=== PATIENT | male | born 1955 | race Caucasian/White ===

== ENCOUNTER 2023-09-02 11:14 | Inpatient (IN) | payer OTHER, SELFPAY ==
[2023-09-02] VITALS (18 sets, daily range): BP systolic 118–155; BP diastolic 65–113; PULSE 10–129; RESP 18–37; TEMP 36.4–37.2; O2SAT 88–96; BMI 24.7
--- NOTE | ~2023-09-02 | XR_ITS ---
EXAMINATION: XR abdomen gastric tube insert DATE: 09/05/2023 09:02 INDICATION: Orogastric tube insertion. TECHNIQUE: A semierect view of the abdomen was obtained. COMPARISON: None. FINDINGS: The lower abdomen is not included. The orogastric tube tip is in the stomach. There are air space opacities in the visualized portions of the lungs, consistent with pneumonia. IMPRESSION: 1. Orogastric tube tip in the stomach. Reviewed, dictated and finalized at location E. WRITER
--- NOTE | ~2023-09-02 | XR_ITS ---
XR chest 1V portable DATE: 09/02/2023 12:33 INDICATION: Cough. Hypoxia. TECHNIQUE: Portable AP chest on 08/29/2023 at 1232 hours COMPARISON: None FINDINGS: Heart size is normal. Aortic arch calcification. No hilar or mediastinal enlargement is romario dent. Scattered patchy infiltrates are noted bilaterally, primarily in the mid and lower lung zones. There is mild prominence of minor fissure which may indicate subpleural edema. No pleural effusion or pneum othorax is noted. IMPRESSION: Patchy mild bilateral mid and lower lung infiltrates Reviewed, dictated and finalized at location A. NT COUNSEL
--- NOTE | ~2023-09-02 | CT_ITS ---
EXAMINATION: CTA chest PE protocol DATE: 09/02/2023 13:40 INDICATION: Shortness of breath, hypoxia. Elevated d-dimer. TECHNIQUE: Computed tomography angiography (CTA) of the chest was performed with 100 mL Omnipaque-350 intravenous contrast timed to evaluate the pulmonary arteries. Coronal maximum intensity projection 3D-reconstructions were created by the technologist. Automated exposure control and iterative reconst ruction technique were employed. Exam dose: 457.13 mGy-cm total exam DLP. COMPARISON: 08/29/2023 portable AP chest FINDINGS: There is diagnostic contrast enhancement of the pulmonary arteries and no evidence of pulmo nary embolism. There is atherosclerotic calcification of the thoracic aorta but no thoracic aortic aneurysm or disse ction. Normal heart size. Coronary artery calcification is noted. No pericardial or pleural effusion. There are extensive bilateral upper lobe, middle lobe and to a greater extent lower lobe preferential ly peripheral groundglass infiltrates with extensive air bronchograms particularly in the lower lobes . Extensive bilateral pneumonia is suspected. Consider Covid. Normal morphology of the adrenal glands. Diffuse hepatic steatosis. Small sliding hiatal hernia. No suspicious osteolytic or osteoblastic lesions. IMPRESSION: Extensive bilateral upper and particularly lower lobe preferentially peripheral pulmonar y groundglass infiltrates; consider Covid pneumonia No evidence of pulmonary embolism Reviewed, dictated and finalized at Location A. Reviewed, dictated and finalized at location A. LRY SETTER IMPRESSION: Extensive bilateral upper and particularly lower lobe preferential ly peripheral pulmonary groundglass infiltrates; consider Covid pneumonia No evidence of pulmonary embolism
--- NOTE | ~2023-09-02 | XR_ITS ---
XR chest ET placement 09/05/2023 09:02 Indication: Respiratory distress Procedure: AP portable chest Comparison: Comparison to multiple prior studies sequentially, with oldest reviewed study dated 08/11. Findings: Endotracheal tube tip 7.3 cm above the mir. NG tube in the stomach. Heart size normal. S table diffuse bilateral airspace disease. No significant effusion. No pneumothorax. Impression: 1: Stable diffuse bilateral airspace disease which may represent edema or pneumonia. Reviewed, dictated and finalized at location B. TRIC MOTOR ASSEMBLER AND TESTER Impression: 1: Stable diffuse bilateral airspace disease which may represent edema or pneum onia.
--- NOTE | ~2023-09-02 | XR_ITS ---
XR chest 1V portable 09/03/2023 17:59 Indication: Redness of breath Procedure: AP portable chest Comparison: 09/02/2023 Findings: Heart size normal. Developing diffuse bilateral airspace disease. No significant effusion. No pneumothorax. No acute osseous abnormality. Impression: 1: Developing bilateral airspace disease which may represent pneumonia or edema. Reviewed, dictated and finalized at location A. GRAPHY TECHNOLOGIST Impression: 1: Developing bilateral airspace disease which may represent pneumonia or edema .
--- NOTE | ~2023-09-02 | XR_ITS ---
XR chest PICC line 09/05/2023 13:06 Indication: PICC line placement Procedure: AP portable chest. Study limited due to exclusion of the lung bases. Comparison: Comparison to multiple prior studies sequentially, with oldest reviewed study dated 08/11. Findings: Endotracheal tube tip 6 cm above the mir. Right subclavian PICC line tip in the SVC. Dif fuse bilateral airspace disease may represent edema or pneumonia, unchanged allowing for technique. C ardiomediastinal silhouette allowing for technique. Impression: 1: PICC line tip in the SVC. Reviewed, dictated and finalized at location B. TESTER Impression: 1: PICC line tip in the SVC.
--- NOTE | ~2023-09-02 | XR_ITS ---
EXAMINATION: XR chest 1V portable DATE: 09/04/2023 08:18 INDICATION: COVID-19 pneumonia. TECHNIQUE: A single frontal view of the chest was obtained. COMPARISON: Chest single view 09/03/2023, chest CT 09/02/2023 FINDINGS: There are diffuse airspace opacities in the lungs with a peripheral predominance and sparin g of the lung apices. No pleural effusion or pneumothorax. The heart size is normal. IMPRESSION: 1. Stable diffuse lung disease, consistent with COVID-19 pneumonia. Reviewed, dictated and finalized at location E. ICAL MATERIAL HANDLER
--- NOTE | ~2023-09-02 | CT_ITS ---
EXAMINATION: CT brain wo con DATE: 09/05/2023 09:31 INDICATION: Encephalopathy TECHNIQUE: Computed tomography (CT) of the head was performed without intravenous contrast. Sagittal and coronal reconstructions were performed. The mA was adjusted according to patient size. Iterative reconstruction technique was employed. The dose-length product was 681.00 mGy-cm. COMPARISON: None FINDINGS: Endotracheal tube and nasogastric tube in the oropharynx. There are moderate-sized regions of loss of thomas-white matter differentiation without significant volume loss or swelling in the left frontal lo be and left occipital and parieto-occipital regions which are suspicious for acute infarct. There is also a smaller focus of mild decreased attenuation at the left caudate nucleus and along a sulcus in the posterior right frontal lobe consistent with age-indeterminate but potentially acute infarcts. Lo wer attenuation likely chronic lacunar infarct at the right thalamus. There is mild scattered white m atter hypoattenuation consistent with chronic small vessel ischemic disease. No acute intracranial he morrhage or abnormal extra axial fluid collection. Ventricles are normal and symmetric. No mass/mass effect. Mucous retention cyst in the left maxillary sinus and mild mucosal thickening the bilateral e thmoid sinuses. The orbits and mastoid air cells are normal. IMPRESSION: 1. Regions of suspected acute infarct in the left frontal lobe, left occipital and parieto-occipital region and smaller age-indeterminate potentially acute infarcts in the left caudate nucleus and poste rior right frontal lobe. Findings were discussed with Sheila Mendez, the nurse caring for the patient, at 9:41 AM. MRI might be helpful to better assess the chronicity of the lesions. If the left and rig ht-sided lesions should be contemporaneous, this would favor a central cardiogenic origin. 2. Additional lower-attenuation likely chronic lacunar infarct at the right thalamus and mild scatter ed white matter hypoattenuation consistent with chronic small vessel ischemic disease. Reviewed, dictated and finalized at location A. ICATION SERVICER IMPRESSION: 1. Regions of suspected acute infarct in the left frontal lobe, left occipital and parieto-occipital region and smaller age-indeterminate potentially acute in farcts in the left caudate nucleus and posterior right frontal lobe. Findings w ere discussed with Sheila Mendez, the nurse caring for the patient, at 9:41 AM. MRI might be helpful to better assess the chronicity of the lesions. If the lef t and right-sided lesions should be contemporaneous, this would favor a central cardiogenic origin. 2. Additional lower-attenuation likely chronic lacunar infarct at the right hang lamus and mild scattered white matter hypoattenuation consistent with chronic s mall vessel ischemic disease.
--- NOTE | ~2023-09-02 | CT_ITS ---
EXAMINATION: CT diagnostic chest wo con DATE: 09/05/2023 11:49 INDICATION: Covid pneumonia TECHNIQUE: Computed tomography (CT) of the chest was performed without intravenous contrast. The dose -length product was 439.49 mGy-cm. Automated exposure control and iterative reconstruction technique were employed. COMPARISON: CT dated 09/02/2023 FINDINGS: Mediastinal lymphadenopathy, likely reactive. Small pleural effusions. Endotracheal tube is present. Significant progression of diffuse bilateral confluent airspace consolidation, consistent w ith pneumonia. No pneumothorax. NG tube in the stomach. No endobronchial lesions. No acute osseous ab normality. IMPRESSION: 1. Significant progression of diffuse bilateral airspace consolidation, consistent with pneumonia. 2: Small pleural effusions. 3: Mediastinal lymphadenopathy, likely reactive. Reviewed, dictated and finalized at location B. ESSIONAL SHOPPER IMPRESSION: 1. Significant progression of diffuse bilateral airspace consolidation, consist ent with pneumonia. 2: Small pleural effusions. 3: Mediastinal lymphadenopathy, likely reactive.
--- NOTE | ~2023-09-02 | XR_ITS ---
XR chest 1V portable 09/05/2023 08:18 Indication: Pneumonia. Procedure: AP portable chest Comparison: 09/04 and 09/03/2023 Findings: Significant progression of diffuse bilateral airspace disease. No significant effusion or p neumothorax. Impression: 1: Significant interval progression of diffuse bilateral airspace disease which may represent edema a nd/or pneumonia. Reviewed, dictated and finalized at location B. ERSMITH APPRENTICE Impression: 1: Significant interval progression of diffuse bilateral airspace disease which may represent edema and/or pneumonia.
--- NOTE | ~2023-09-02 | CT_ITS ---
EXAMINATION: CTA brain carotid DATE: 09/05/2023 11:49 INDICATION: History TECHNIQUE: Computed tomographic angiography (CTA) of the head was performed with 100 mL Omnipaque-350 intravenous contrast. CTA of the neck was performed with intravenous contrast. Automated exposure co ntrol and iterative reconstruction technique were employed. The dose-length product was 1131.77 mGy-c m. Maximum intensity projection and volume rendered 3D-reconstructions were created by the technologi st on a separate workstation. COMPARISON: Head CT 09/05/2023 FINDINGS: HEAD CTA: There are infarcts in left frontal lobe, left parietal lobe, left occipital lobe, right fro ntoparietal region, and left caudate nucleus. There is a lacunar infarct in right thalamus. There is no intracranial hemorrhage or abnormal mass lesion. The ventricles are normal in size. The orbits are normal. There is mucosal thickening in the paranasal sinuses. The mastoid air cells are normal. Righ t vertebral artery is dominant. There is no significant stenosis of basilar artery or the posterior c erebral arteries. There is no significant stenosis of intracranial internal carotid arteries or anter ior or middle cerebral arteries. Anterior communicating artery is normal. The posterior communicating arteries are normal. There is no aneurysm. NECK CTA: There are small pleural effusions. There are peripheral airspace and groundglass opacities in the visualized portions of the lungs. There is an endotracheal tube in expected position. An oroga stric tube is noted. There is no significant stenosis of the vertebral arteries. There is plaque in t he proximal internal carotid arteries. There is 0% stenosis of the proximal right internal carotid ar solomon relative to normal distal artery lumen diameter (NASCET criteria). There is 0% stenosis of the p roximal left internal carotid artery relative to normal distal artery lumen diameter. There is severe cervical spondylosis. IMPRESSION: 1. Infarcts involving the left frontal lobe, left parietal lobe, left occipital lobe, right frontopar ietal region, and left caudate nucleus, likely acute. 2. Age-indeterminate infarct in the right thalamus. 3. No aneurysm or significant intracranial arterial stenosis. 4. 0% stenosis of the proximal internal carotid arteries relative to normal distal artery lumen diame ters (NASCET criteria). 5. Small pleural effusions. 6. Diffuse lung disease, consistent with pneumonia. Reviewed, dictated and finalized at location E. IMPRESSION: 1. Infarcts involving the left frontal lobe, left parietal lobe, left occipital lobe, right frontoparietal region, and left caudate nucleus, likely acute. 2. Age-indeterminate infarct in the right thalamus. 3. No aneurysm or significant intracranial arterial stenosis. 4. 0% stenosis of the proximal internal carotid arteries relative to normal dis angelica artery lumen diameters (NASCET criteria). 5. Small pleural effusions. 6. Diffuse lung disease, consistent with pneumonia.
--- NOTE | 2023-09-02 11:45 | ECG_ITS ---
Measurements Intervals [place] Rate: 127 P: 38 AK: 127 QRS: -42 QRSD: 98 T: 14 QT: 307 QTc: 447 Interpretive Statements SINUS TACHYCARDIA INFERIOR MYOCARDIAL INFARCTION , PROBABLY OLD WITH POSTERIOR EXTENSION [40+ ms Q WAVE AND/OR ST/T ABNORMALITY IN II/aVFPROMINE NO PREVIOUS ECG AVAILABLE FOR COMPARISON Electronically Signed On 09-02-2023 17:14:01 ECDIS N NAVIGATION OPERATOR by Sheila Jones M.D.
--- NOTE | 2023-09-02 11:57 | ED.GENADULT ---
HPI - General Adult General Chief complaint: Upper Respiratory Infection Stated complaint: cough, Low o2 Time Seen by Provider: 09/02/23 11:29 Source: patient, EMS and RN notes reviewed Mode of arrival: EMS History of Present Illness HPI narrative: This is a 67 year old male who presents for evaluation of shortness of breath. He states that he developed cough, congestion runny nose 1 week ago. HE has had progressive shortness of breath since onset of symptoms. He also reports decreased appetite and he has not been eating and drinking. He reports weakness. EMS reports patient was hypoxic and wheezing. He was 86% on room air. He was given duoneb tx with improvement of symptoms. He was still 88% on room air in ER. He denies chest pain, vomiting , diarrhea. Related Data Allergies Allergy/AdvReac Type Severity Reaction Status Date / Time No Known Allergies Allergy Verified 09/02/23 13:17 Review of Systems Constitutional: Constitutional: Reports fatigue and Reports weakness Cardiovascular: Cardiovascular: Denies syncope, Denies rapid heart rate, Denies irregular heart rhythm, Denies leg edema and Reports dyspnea Respiratory: Respiratory: Reports chest congestion, Reports cough, Denies hemoptysis, Denies excessive phlegm production, Reports dyspnea and Reports wheezing Gastrointestinal: Gastrointestinal: Denies abdominal pain, Denies hematochezia, Denies diarrhea and Denies vomiting Genitourinary: Genitourinary: Denies hematuria, Denies dysuria, Denies penile discharge and Denies testicular pain Musculoskeletal: Musculoskeletal: Denies joint swelling, Denies loss of height and Denies muscle weakness Neurologic: Denies syncope, Denies focal weakness and Denies weakness COUNT INCLUDES THE [facility] Past Medical History Medical History (Updated 09/02/23 @ 18:59 by Yanira Alfaro MD) Type 2 diabetes mellitus Surgical History Surgical History (Updated 09/02/23 @ 18:09 by Iona Freeman PA-C) History of appendectomy Family History Family History (Updated 09/02/23 @ 18:26 by Armin Forrest, MEERA) Mother Cancer Father Dementia Other Family history non-contributory Social History Social History (Updated 09/02/23 @ 18:10 by Iona Freeman PA-C) Social History: Surrogate medical decision maker: Danny Mendez, son. Code status: Full code. Smoking packs per day: 1 Smoking cigarettes per day: 20.0 Years smoked: 26 Smoking pack-years: 26.00 Smoking status: Former smoker Tobacco type: cigarettes Smoking end date: 08/10/03 Additional smoking assessment comments: Former smoker, quit greater than 25 years ago. Alcohol intake: never Substance use: never Do You Feel Safe in your Home?: Yes Lack of Transportation: YES Lack of Food: Never True Current Housing: I Have Housing Concerned About Future Housing: No Difficulty Paying Gas/Electric Bills: No Difficulty Paying for Meds: No Currently Unemployed: No Education: High School Diploma/GED Difficulty w/ Childcare or Family Care: No Additional living arrangements comments: Lives in [place], [place]. 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 Spiritual care concerns: No Exam Const: General: alert and ill appearing Nutritional Appearance: well nourished Orientation/consciousness: patient oriented x3 HENMT: Head: normal to inspection Face and sinus: normal facial exam Mouth: Yes Normal oral and palatal mucosa present and Yes moist mucous membranes Eyes: EOM: EOMs intact bilaterally Neck: Neck: normal visual inspection Chest: Chest palpation & inspection: normal inspection of the chest Resp: Effort & Inspection: normal respiratory effort Auscultation: clear to auscultation bilaterally Cardio: Rate: tachycardic Rhythm: regular rhythm Heart sounds: no murmurs GI: GI Palp: Yes Soft to palpation, No Tenderness to palpation present (GI), No Guarding due to palpation present (GI) and No Rigid d
[2023-09-02 12:06] LABS: Alveolar/Arterial O2 Gradient 92.9 mmHg; Base Excess ABG -11.2 mEq/l (+/-2.0); Carboxyhemoglobin 0.7 % THb (0-2.0); Device NASAL CANNULA; Fractional Inspired Oxygen 28 %; HCO3 ABG 11.9 mEq/l (22.0-26.0); Methemoglobin ABG 0.2 %THb (0-1.5); Modified Allen's Test Pass; Oxygen Content ABG 19.6 %vol (16.0-22.0); Oxygen Saturation ABG 95.9 % (95.0-100.0); Oxyhemoglobin 94.6 % THb (90.0-100.0); PCO2 ABG 21.6 mmHg (35.0-45.0); PO2 ABG 81.3 mmHg (80.0-100.0); Reduced Hemoglobin 4.5 %THb (0-5.0); Site Drawn LEFT RADIAL; Total Hemoglobin 14.7 g/dL (12.0-18.0); pH ABG 7.358 (7.350-7.450)
[2023-09-02 12:15] LABS: Basophils Percent Auto 0.2 % (0.2-1.2); Hematocrit 44.2 % (42.0-52.0); Hemoglobin 14.2 g/dL (14.0-18.0); Immature Granulocyte Absolute 0.06 K/mm3 (0.00-0.031); Immature Granulocyte Percent A 0.7 % (0-0.5); Lymphocytes Absolute Auto 0.52 K/mm3 (0.9-3.2); Lymphocytes Percent Auto 5.7 % (18.3-44.2); Mean Corpuscular HGB Conc 32.1 g/dl (32-36); Mean Corpuscular Hemoglobin 27.3 pg (26-34); Mean Platelet Volume 9.3 fl (7.4-10.4); Monocytes Absolute Auto 0.4 K/mm3 (0.1-0.6); Monocytes Percent Auto 3.9 % (2.6-8.5); Neutrophils Absolute Auto 8.1 K/mm3 (1.3-6.7); Neutrophils Percent Auto 89.5 % (45.5-73.1); Platelet Count Result 271 k/mm3 (150-375); Red Cell Distribution Width 13.2 % (11.5-14.5); White Blood Count 9.1 K/mm3 (4.5-10.0)
[2023-09-02 12:24] LABS: Lactic Acid Reflex 2.7 mmol/L (0.7-2.0)
[2023-09-02 12:27] LABS: Alanine Aminotransferase 23 U/L (6-50); Albumin Level 4.1 g/dL (3.5-5.1); Alkaline Phosphatase 62 U/L (38-126); Anion Gap 24 mmol/L (8-16); Aspartate Amino Transferase 35 U/L (17-59); Bilirubin,Total 0.7 mg/dL (0.2-1.3); Blood Urea Nitrogen 13 mg/dL (9-20); Calcium 8.7 mg/dL (8.4-10.2); Carbon Dioxide 11 mmol/L (22-30); Chloride 96 mmol/L (98-107); Estimated CRCL calculation 68 ml/min; Estimated Glomerular Filt Rate > 60; Glucose 303 mg/dL (65-110); Potassium 3.7 mmol/L (3.4-5.0); Sodium 131 mmol/L (137-145)
[2023-09-02 12:31] LABS: INR 1.1; Prothrombin Time 15.1 Seconds (11.1-14.7)
[2023-09-02 12:32] LABS: Partial Thromboplastin Time 31.9 SECONDS (22.3-36.8)
[2023-09-02] MEDS: LACTATED RINGERS 1,000 ML 999 ML IV CONT ×2 (12:32→15:20)
[2023-09-02 12:35] LABS: NT Pro B Type Natriuretic Pept 805 pg/mL (19.9-100)
[2023-09-02 12:37] LABS: Troponin I < 0.012 ng/mL (0.000-0.034)
[2023-09-02 12:46] LABS: D Dimer 2.13 ug/mL (<0.48)
[2023-09-02 12:54] LABS: Influenza A QL RT-PCR Negative (Negative); Influenza B QL RT-PCR Negative (Negative); RSV RNA, RT-PCR Negative (Negative); SARS-CoV-2 RNA PCR Positive (Negative)
[2023-09-02 13:54] LABS: Appearance Urine Clear (Clear); Bacteria Urine None Seen /hpf; Bilirubin Urine Negative (Negative); Blood Urine 1+ (Negative); Color Urine Yellow (Yellow); Glucose Urine UA 3+ mg/dL (Negative); Ketones Urine 4+ mg/dL (Negative); Leukocyte Esterase Ur Negative LEU/UL (Negative); Nitrate Urine Negative (Negative); Non Pathogenic Casts 0-2; Protein Urine 2+ mg/dL (Negative); RBC Urine 0-2 /hpf (0-2); Specific Grav Ur 1.032 (1.001-1.035); Squamous Epithelial Cell Urine None seen /hpf (Few); Urobilinogen Urine 0.2 mg/dL (<2.0); WBC Urine 0-5 /hpf
[2023-09-02 13:55] LABS: Add Urine Microscopic? YES
[2023-09-02] MEDS: REMDESIVIR 200 MG/NS 250 ML 200 MG/250 ML BAG 250 MG IVPB (14:14)
[2023-09-02 15:01] LABS: Beta-Hydroxybutyrate/Acetoacetate 6.61 mmol/L (0.02-0.27)
[2023-09-02 15:12] LABS: Reflex Lactic Acid Yes or No Add Lactic
[2023-09-02] MEDS: SODIUM CHLORIDE 0.9% IV 1,000 ML 999 ML IV CONT (15:54)
[2023-09-02 16:01] LABS: Glucose Point of Care 285 mg/dl (65-105)
--- NOTE | 2023-09-02 16:41 | PM.IMHP ---
H&P: HPI History of Present Illness Date/Time: 09/02/23 17:00 Chief Complaint: Shortness of breath. Narrative: This is a very pleasant 67-year-old male with type 2 diabetes mellitus who presented to the emergency department via EMS from a local truck stop for evaluation of shortness of breath. The patient provides the following history. 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 He has not been feeling well approximately 1 weeks time with symptoms to include sinus congestion, rhinorrhea, dry cough, poor appetite, weakness, and progressive shortness of breath on lesser and lesser exertion. NyQuil allows him to sleep but he has not noticed any significant alleviating factors. Yesterday he was feeling so poorly that he pulled over at a local truck stop and he slept through until this morning. When he got up he had a coughing fit and was extremely short of breath and at that time of and he called 911. On EMS arrival his SpO2 was 86% on room air and he was given a DuoNeb in route to the hospital with some improvement. Upon arrival to the emergency department he was afebrile. He was tachycardic in the 120s and he has been persistently tachypneic in the 20s to low 30s. Labs were significant for a WBC count of 9.1, D-dimer 2.13, sodium 131, chloride 96, carbon dioxide 11, anion gap 24, creatinine 1.00, glucose 303, lactic acid 2.7, beta hydroxybutyrate 6.61, troponin less than 0.012, proBNP 805. Urine was positive for 2+ protein, 3+ glucose, 4+ ketones, and 1+ blood. He tested positive for SARS-CoV-2 by PCR. Chest CTA was negative for pulmonary embolism but did showed extensive preferentially peripheral infiltrates concerning for COVID pneumonia. He was given 2 L lactated Ringer's, 200 mg remdesivir, and 6 mg dexamethasone. He has also been started on insulin drip and he is being admitted to the ICU in this setting. Review of Systems Review of Systems: Twelve systems were reviewed. No fever, chills, or sweats. Denies headache neck ache. No chest or pleuritic pain. Appetite has been poor but he denies vomiting and diarrhea. He had not noticed that his glucose was creeping upwards but has not checked it for couple of days as he has not really been eating much. Except as documented, other systems were reviewed and are negative. [facility] Past Medical History Medical History Type 2 diabetes mellitus Surgical History Surgical History History of appendectomy Family History Family History Mother Cancer Father Dementia Other Family history non-contributory Social History Social History Social History: Surrogate medical decision maker: Danny Mendez, son. Code status: Full code. Smoking packs per day: 1 Smoking cigarettes per day: 20.0 Years smoked: 26 Smoking pack-years: 26.00 Smoking status: Former smoker Tobacco type: cigarettes Smoking end date: 08/10/03 Additional smoking assessment comments: Former smoker, quit greater than 25 years ago. Alcohol intake: never Substance use: never Do You Feel Safe in your Home?: Yes Lack of Transportation: YES Lack of Food: Never True Current Housing: I Have Housing Concerned About Future Housing: No Difficulty Paying Gas/Electric Bills: No Difficulty Paying for Meds: No Currently Unemployed: No Education: High School Diploma/GED Difficulty w/ Childcare or Family Care: No Additional living arrangements comments: Lives in [place], [place]. 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 Spiritual care concerns: No Meds Home Medications and Allergies Home Medications Medication Instructions Recorded Confirmed Type dulaglutide 1.5 mg/0.5 mL 1.5
[2023-09-02] MEDS: INSULIN HUMAN REGULAR (*BKC) 100 UNITS in SODIUM CHLORIDE 0.9% IV 99 ML 8 UNITS IV CONT (17:11)
[2023-09-02] MEDS: SODIUM CHLORIDE 0.9% IV 1,000 ML 150 ML IV CONT (17:12)
--- NOTE | 2023-09-02 18:11 | ADMGEN ---
This patient, Shirley Mendez, was admitted to Intensive Care Unit-9. Patient/family oriented to hospital policies and general routines including ID bracelet, bed and alarms, visiting hours, pain management, procedures, bathroom and other care routines, personal items, smoking policy, room service/diet, and visiting hours. Information on how to activate the Rapid Response Team has been discussed. Patient/Family are encouraged to report perceived risks to care and to ask questions if they do not understand what they are told or what they should do.
[2023-09-02 18:27] LABS: Lactic Acid 2.2 mmol/L (0.7-2.0); Magnesium 2.2 mg/dL (1.6-2.3); Phosphorus 2.6 mg/dL (2.5-4.5)
[2023-09-02 18:28] LABS: Anion Gap 18 mmol/L (8-16); Blood Urea Nitrogen 13 mg/dL (9-20); Calcium 8.1 mg/dL (8.4-10.2); Carbon Dioxide 11 mmol/L (22-30); Chloride 104 mmol/L (98-107); Estimated CRCL calculation 84 ml/min; Estimated Glomerular Filt Rate > 60; Glucose 250 mg/dL (65-110); Potassium 3.5 mmol/L (3.4-5.0); Sodium 133 mmol/L (137-145)
[2023-09-02] MEDS: KCL 20 MEQ/D5/0.45% SOD CHL 1,000 ML 150 ML IV CONT (18:55)
[2023-09-02 19:28] LABS: Hemoglobin A1C 10.3 % (<5.7); Lactic Acid Reflex 1.5 mmol/L (0.7-2.0)
[2023-09-02 19:43] LABS: Anion Gap 14 mmol/L (8-16); Blood Urea Nitrogen 14 mg/dL (9-20); CRP 25.6 mg/dL (<1.0); Calcium 8.3 mg/dL (8.4-10.2); Carbon Dioxide 13 mmol/L (22-30); Chloride 106 mmol/L (98-107); Estimated CRCL calculation 84 ml/min; Estimated Glomerular Filt Rate > 60; Glucose 216 mg/dL (65-110); Lactate Dehydrogenase 478 U/L (120-246); Magnesium 2.2 mg/dL (1.6-2.3); Phosphorus 2.1 mg/dL (2.5-4.5); Potassium 3.6 mmol/L (3.4-5.0); Sodium 133 mmol/L (137-145)
[2023-09-02 19:46] LABS: Procalcitonin 0.7 ng/mL
[2023-09-02] MEDS: BARICITINIB 2 MG TABLET 4 MG PO (20:13)
[2023-09-02 20:21] LABS: Glucose Point of Care 268 mg/dl (65-105)
[2023-09-02 20:22] LABS: Glucose Point of Care 243 mg/dl (65-105)
[2023-09-02 20:22] LABS: Glucose Point of Care 221 mg/dl (65-105)
[2023-09-02] MEDS: IPRATROPIUM BR 0.02% INH SOLN 0.5 MG/2.5 ML VIAL INHALATION (20:51)
[2023-09-02] MEDS: LEVALBUTEROL NEB 1.25 MG/3 ML INHALATION (20:51)
[2023-09-02 21:12] LABS: Glucose Point of Care 172 mg/dl (65-105)
--- NOTE | 2023-09-02 22:26 | PC.NURSE ---
RT placed pt on airvo. Pt wore airvo for approximately one hour before calling nurses station stating that he cannot breathe. RT notified. Nursing staff to pt's bedside. Pt states he cannot get comfortable on airvo and is requesting it be removed. RT placed pt back on high flow nasal cannula and non-rebreather. RT also administered a breathing treatment while in the room. Both nursing staff and RT explained to pt the benefit of wearing airvo vs. high flow nasal cannula. Staff left pt bedside and noted a decrease in O2 sat. Pt removed all forms of oxygen. RT and nursing went back into pt's room to explain importance of wearing O2. Pt states that he was not wearing a nasal cannula prior to wearing the airvo. Pt called staff liars and stated you need to check the records. She changed my mask. This is not what I was wearing and I never had anything in my nose. Staff able to get pt to wear both high flow cannula and non-rebreather for now. Pt states he wants to talk to a provider. MANAN Heredia aware of situation and asks that the pt prone. Pt refuses. MANAN Monson aware.
[2023-09-02 23:08] LABS: Glucose Point of Care 233 mg/dl (65-105)
[2023-09-02 23:08] LABS: Glucose Point of Care 189 mg/dl (65-105)
[2023-09-02 23:42] LABS: Anion Gap 11 mmol/L (8-16); Blood Urea Nitrogen 13 mg/dL (9-20); Calcium 8.1 mg/dL (8.4-10.2); Carbon Dioxide 16 mmol/L (22-30); Chloride 105 mmol/L (98-107); Estimated CRCL calculation 95 ml/min; Estimated Glomerular Filt Rate > 60; Glucose 224 mg/dL (65-110); Potassium 3.8 mmol/L (3.4-5.0); Sodium 132 mmol/L (137-145)
[2023-09-03] VITALS (22 sets, daily range): BP systolic 107–130; BP diastolic 69–97; PULSE 15–102; RESP 18–32; TEMP 36.6–37.2; O2SAT 89–98
[2023-09-03 00:11] LABS: Glucose Point of Care 256 mg/dl (65-105)
[2023-09-03] MEDS: SODIUM CHLORIDE 0.9% IV 1,000 ML 150 ML IV CONT ×2 (01:09→19:56)
[2023-09-03 01:25] LABS: Glucose Point of Care 260 mg/dl (65-105)
[2023-09-03] MEDS: ALBUTEROL SULFATE NEB 2.5 MG/3 ML INH INHALATION ×4 (02:27→21:35)
[2023-09-03] MEDS: IPRATROPIUM BR 0.02% INH SOLN 0.5 MG/2.5 ML VIAL INHALATION ×4 (02:27→21:35)
[2023-09-03] MEDS: KCL 20 MEQ/D5/0.45% SOD CHL 1,000 ML 150 ML IV CONT ×3 (02:41→17:48)
[2023-09-03 04:04] LABS: Basophils Percent Auto 0.1 % (0.2-1.2); Hematocrit 40.1 % (42.0-52.0); Immature Granulocyte Absolute 0.05 K/mm3 (0.00-0.031); Immature Granulocyte Percent A 0.6 % (0-0.5); Lymphocytes Absolute Auto 0.83 K/mm3 (0.9-3.2); Lymphocytes Percent Auto 10.6 % (18.3-44.2); Mean Corpuscular HGB Conc 32.4 g/dl (32-36); Mean Corpuscular Hemoglobin 27.1 pg (26-34); Mean Corpuscular Volume 83.7 fl (80-100); Mean Platelet Volume 9.2 fl (7.4-10.4); Monocytes Absolute Auto 0.4 K/mm3 (0.1-0.6); Monocytes Percent Auto 4.6 % (2.6-8.5); Neutrophils Absolute Auto 6.6 K/mm3 (1.3-6.7); Neutrophils Percent Auto 84.1 % (45.5-73.1); Platelet Count Result 259 k/mm3 (150-375); Red Blood Count 4.79 M/mm3 (4.6-6.20); Red Cell Distribution Width 13.2 % (11.5-14.5); White Blood Count 7.8 K/mm3 (4.5-10.0)
[2023-09-03 04:05] LABS: Glucose Point of Care 245 mg/dl (65-105)
[2023-09-03 04:05] LABS: Glucose Point of Care 222 mg/dl (65-105)
[2023-09-03 04:05] LABS: Glucose Point of Care 193 mg/dl (65-105)
[2023-09-03 04:13] LABS: Alanine Aminotransferase 21 U/L (6-50); Albumin Level 3.3 g/dL (3.5-5.1); Alkaline Phosphatase 57 U/L (38-126); Anion Gap 9 mmol/L (8-16); Aspartate Amino Transferase 38 U/L (17-59); Bilirubin,Total 0.4 mg/dL (0.2-1.3); Blood Urea Nitrogen 14 mg/dL (9-20); Calcium 8.3 mg/dL (8.4-10.2); Carbon Dioxide 18 mmol/L (22-30); Chloride 106 mmol/L (98-107); Estimated CRCL calculation 95 ml/min; Estimated Glomerular Filt Rate > 60; Glucose 208 mg/dL (65-110); Magnesium 2.2 mg/dL (1.6-2.3); Potassium 3.7 mmol/L (3.4-5.0); Sodium 133 mmol/L (137-145)
[2023-09-03 05:03] LABS: Glucose Point of Care 205 mg/dl (65-105)
[2023-09-03] MEDS: INSULIN HUMAN REGULAR (*BKC) 100 UNITS in SODIUM CHLORIDE 0.9% IV 99 ML IV CONT (05:58)
[2023-09-03 06:53] LABS: Glucose Point of Care 225 mg/dl (65-105)
[2023-09-03 06:53] LABS: Glucose Point of Care 246 mg/dl (65-105)
[2023-09-03 08:03] LABS: Anion Gap 10 mmol/L (8-16); Blood Urea Nitrogen 14 mg/dL (9-20); Calcium 8.4 mg/dL (8.4-10.2); Carbon Dioxide 18 mmol/L (22-30); Chloride 106 mmol/L (98-107); Estimated CRCL calculation 110 ml/min; Estimated Glomerular Filt Rate > 60; Glucose 232 mg/dL (65-110); Sodium 134 mmol/L (137-145)
[2023-09-03] MEDS: lisinopriL 2.5 MG TABLET PO (08:31)
[2023-09-03] MEDS: ENOXAPARIN 40 MG/0.4 ML SYRINGE SUB-Q (08:31)
[2023-09-03 08:42] LABS: Glucose Point of Care 286 mg/dl (65-105)
--- NOTE | 2023-09-03 09:52 | WPDCNINT ---
Assessment and Plan Assessment and plan (1) Diabetic ketoacidosis associated with type 2 diabetes mellitus: Qualifiers: Diabetes mellitus complication detail: without coma Qualified Code(s): E11.10 - Type 2 diabetes mellitus with ketoacidosis without coma Code(s): E11.10 - Type 2 diabetes mellitus with ketoacidosis without coma Status: Acute Assessment and Plan: Patient presented with hyperglycemia, elevated anion gap beta hydroxybutyrate. UA did show significant amount of ketones and glucose. -patient received 3 L of IV fluid bolus in the ER, started on insulin drip per DKA protocol -hemoglobin A1c is 10.3 on this admission -will transition patient to long-acting insulin and sliding scale insulin once his anion gap closes and CO2 have improved -NPO -patient does have a history of diabetes type 2, on Trulicity as an outpatient (2) Acute respiratory failure with hypoxia: Code(s): J96.01 - Acute respiratory failure with hypoxia Status: Acute Assessment and Plan: Acute hypoxic respiratory failure likely related to pneumonia which could be secondary to COVID-19 and/or bacteria -09/02/2023 CTA chest: Extensive bilateral upper and particularly lower lobe preferentially peripheral pulmonary groundglass infiltrates; consider Covid pneumonia. No evidence of pulmonary embolism Patient states he has had pneumonia in the past -patient started on ceftriaxone, azithromycin and vancomycin (08/14) -09/02/2023 blood cultures have been obtained and pending -09/03/2023 sputum cultures have been ordered -continue high-flow oxygen via nasal cannula (3) Pneumonia due to COVID-19 virus: Code(s): U07.1 - COVID-19; J12.82 - Pneumonia due to coronavirus disease 2019 Status: Acute Assessment and Plan: Patient was tested positive for SARS-CoV-2 PCR on 09/02/2022 -started on Remdesivir, baricitinib and dexamethasone -D-dimer was elevated to 2.13 -CTA chest as above -continue antibiotics -continue contact and airborne isolation Plan DVT prophylaxis: Enoxaparin Stress ulcer prophylaxis: Protonix Nutrition: NPO for now Code Status: Full code Critical Care Time Spent: 46 minutes Due to a high probability of clinically significant, life threatening deterioration, the patient required my highest level of preparedness to intervene emergently and I personally spent this critical care time directly and personally managing the patient. This critical care time included obtaining a history; examining the patient; pulse oximetry; ordering and review of studies; arranging urgent treatment with development of a management plan; evaluation of patient's response to treatment; frequent reassessment; and discussions with other providers. It was exclusive of separately billable procedures and treating other patients and teaching time. Please see Assessment and Plan section and the rest of the note for further information on patient assessment and treatment This dictation may have been done utilizing a voice recognition system. Attempts have been made to correct errors. However, there may be uncorrected grammatical, spelling, and recognitions errors present. Rectification Printer Consult Note Consult date: 09/03/23 Reason for consult: DKA Acute hypoxic respiratory failure secondary to COVID/bacteria pneumonia, shortness of breath, HPI: Shirley Mendez is a 67 year old male with history of diabetes type 2, in the ED on 09/02/2023 with complains of shortness of breath with cough, rhinorrhea, sinus congestion that started approximately 1 week ago. On the day of admission patient explains extreme shortness of breath especially when he has a coughing spell. In the ER patient is O2 sats were in the upper 80s on room air. Patient was tachycardic in the ER along with tachypnea. WBC count of 9.1, D-dimer 2.13, sodium 131, CO2 11, anion gap of 24, creatinine 1.0 II Mirna 3, lactic acid 2.7, beta hydroxybutyrate was elevated a normal
[2023-09-03 09:54] LABS: Glucose Point of Care 186 mg/dl (65-105)
[2023-09-03] MEDS: guaiFENesin/CODEINE (*CRX) 200/20 MG 10 ML SYRUP PO ×4 (10:46→22:30)
[2023-09-03] MEDS: PANTOPRAZOLE SODIUM IV 40 MG VIAL IV PUSH (10:47)
[2023-09-03] MEDS: REMDESIVIR 100 MG/NS 250 ML 100 MG/250 ML BAG 250 MG IVPB (10:47)
[2023-09-03 11:11] LABS: Glucose Point of Care 190 mg/dl (65-105)
[2023-09-03] MEDS: cefTRIAXone 2 GM/NS 100 ML 2 GM/100 ML BAG IVPB (11:52)
[2023-09-03] MEDS: BARICITINIB 2 MG TABLET 4 MG PO (11:52)
[2023-09-03 12:15] LABS: Appearance Urine Clear (Clear); Bacteria Urine None Seen /hpf; Bilirubin Urine Negative (Negative); Blood Urine Trace (Negative); Color Urine Yellow (Yellow); Glucose Urine UA 3+ mg/dL (Negative); Ketones Urine 2+ mg/dL (Negative); Leukocyte Esterase Ur Negative LEU/UL (NEGATIVE); Nitrate Urine Negative (Negative); Non Pathogenic Casts 0-2; Protein Urine 1+ mg/dL (Negative); RBC Urine 0-2 /hpf (0-2); Specific Grav Ur 1.028 (1.001-1.035); Squamous Epithelial Cell Urine None seen /hpf (Few); WBC Urine 0-5 /hpf (0-3); pH Urine 5.5 (5.0-9.0)
[2023-09-03 12:26] LABS: Add Urine Microscopic? YES
[2023-09-03 12:31] LABS: MRSA (PCR) NOT DETECTED (NOT DETECTE)
[2023-09-03 13:05] LABS: Glucose Point of Care 235 mg/dl (65-105)
[2023-09-03 13:26] LABS: Anion Gap 9 mmol/L (8-16); Blood Urea Nitrogen 14 mg/dL (9-20); Calcium 8.5 mg/dL (8.4-10.2); Carbon Dioxide 18 mmol/L (22-30); Chloride 107 mmol/L (98-107); Estimated CRCL calculation 110 ml/min; Estimated Glomerular Filt Rate > 60; Glucose 245 mg/dL (65-110); Potassium 4.4 mmol/L (3.4-5.0); Sodium 134 mmol/L (137-145)
[2023-09-03] MEDS: VANCOMYCIN 2,000 MG/NS 500 ML 2,000 MG/500 ML BAG 250 MG IVPB (14:40)
[2023-09-03] MEDS: AZITHROMYCIN 500 MG/NS 250 ML 500 MG/250 ML BAG 250 MG IVPB (14:40)
[2023-09-03 14:57] LABS: Glucose Point of Care 241 mg/dl (65-105)
[2023-09-03] MEDS: SODIUM CHLORIDE 0.9% IV 500 ML IV CONT (16:03)
[2023-09-03 16:04] LABS: Glucose Point of Care 225 mg/dl (65-105)
[2023-09-03 17:09] LABS: Anion Gap 9 mmol/L (8-16); Blood Urea Nitrogen 12 mg/dL (9-20); Calcium 7.7 mg/dL (8.4-10.2); Carbon Dioxide 17 mmol/L (22-30); Chloride 107 mmol/L (98-107); Estimated CRCL calculation 110 ml/min; Estimated Glomerular Filt Rate > 60; Glucose 248 mg/dL (65-110); Potassium 3.8 mmol/L (3.4-5.0); Sodium 133 mmol/L (137-145)
[2023-09-03 18:02] LABS: Glucose Point of Care 231 mg/dl (65-105)
[2023-09-03 18:54] LABS: Glucose Point of Care 255 mg/dl (65-105)
[2023-09-03] MEDS: FUROSEMIDE INJ 40 MG/4 ML VIAL 20 MG IV PUSH (18:57)
[2023-09-03 21:04] LABS: Glucose Point of Care 249 mg/dl (65-105)
[2023-09-03 21:04] LABS: Glucose Point of Care 285 mg/dl (65-105)
[2023-09-03 21:54] LABS: Anion Gap 11 mmol/L (8-16); Blood Urea Nitrogen 13 mg/dL (9-20); Calcium 8.9 mg/dL (8.4-10.2); Carbon Dioxide 22 mmol/L (22-30); Chloride 105 mmol/L (98-107); Estimated CRCL calculation 95 ml/min; Estimated Glomerular Filt Rate > 60; Glucose 260 mg/dL (65-110); Potassium 3.8 mmol/L (3.4-5.0); Sodium 138 mmol/L (137-145)
[2023-09-03 22:05] LABS: Glucose Point of Care 263 mg/dl (65-105)
[2023-09-03] MEDS: ACETAMINOPHEN 325 MG TABLET 650 MG PO (22:30)
[2023-09-03] MEDS: INSULIN GLARGINE (*BKC) 100 UNITS/ML 35 UNITS SUB-Q (22:31)
[2023-09-03] MEDS: VANCOMYCIN 1,500 MG/NS 500 ML 1,500 MG/500 ML BAG 250 MG IVPB (22:31)
[2023-09-03 22:54] LABS: Glucose Point of Care 242 mg/dl (65-105)
[2023-09-04] VITALS (27 sets, daily range): BP systolic 96–144; BP diastolic 60–89; PULSE 53–82; RESP 16–29; TEMP 36.3–36.6; O2SAT 90–97; BMI 25.3
--- NOTE | 2023-09-04 | ECHO_ITS ---
Patient Info Name: Shirley Mendez Age: 67 years : 1955 Gender: Male Ht: 71 in Wt: 181 lbs BSA: 2.04 m2 HR: 78 bpm BP: 124 / 90 mmHg Technical Quality: Fair Exam Date: 09/04/2023 11:12 AM Exam Location: Echo Lab Patient Status: Inpatient Admit Date: 09/02/2023 Staff Ordering Physician: Abdulkadir Gomez MD Project Director: MURTAZA Attending Provider: Les Salvador MD Referring Physician: Jason OLEARY; Exam Type: CA echo doppler color flow Study Info Complete two-dimensional, color flow and Doppler transthoracic echocardiogram is performed. Summary 1. Technically difficult study. 2. Left ventricular chamber dimension is normal. 3. Left ventricular systolic function is normal, estimated at 50-55%. 4. Right ventricular systolic function is normal. 5. There is mild mitral valve regurgitation. Left Ventricle Left ventricular chamber dimension is normal. Left ventricular systolic function is normal, estimated at 50-55%. There is no increased left ventricular wall thickness. Right Ventricle Right ventricular chamber dimension is normal. Right ventricular systolic function is normal. Left Atria Left atrial chamber dimension is normal. Right Atria Right atrial chamber dimension is normal. Atrial Septum Intact interatrial septum visualized by color flow imaging. Aortic Valve The aortic valve is not well visualized. There is no aortic valve stenosis. There is no aortic valve regurgitation. There is mild aortic valve calcification. Pulmonic Valve The pulmonic valve is not well visualized. Mitral Valve There is mild mitral valve regurgitation. Tricuspid Valve There is trace tricuspid valve regurgitation. Pericardium/Pleural There is no pericardial effusion. Inferior Vena Cava Dilated inferior vena cava with <50% collapse upon inspiration consistent with elevated right atrial pressure, 15 mmHg. Aorta The aortic root size at the sinus of Valsalva is normal. Left Ventricular Outflow Tract Name Value Normal LVOT 2D LVOT Diameter 1.9 cm LVOT Doppler LVOT Peak Gradient 3 mmHg LVOT Mean Gradient 1 mmHg LVOT VTI 18 cm LVOT VTI/AV VTI Ratio 0.5 LVOT Stroke Volume 54 ml LVOT CO 4.0 l/min LVOT CI 2.0 l/min/m2 Pulmonic Valve Name Value Normal PV Doppler PV Peak Gradient 3 mmHg Mitral Valve Name Value Normal MV Doppler MV Decel [place] 480 cm/s2 MV PHT 57 ms MV Area (PHT)
[2023-09-04 00:16] LABS: Glucose Point of Care 244 mg/dl (65-105)
[2023-09-04] MEDS: INSULIN ASPART (*BKC) 100 UNITS/ML SUB-Q ×4 (00:28→21:12)
[2023-09-04] MEDS: IPRATROPIUM BR 0.02% INH SOLN 0.5 MG/2.5 ML VIAL INHALATION ×4 (03:24→21:52)
[2023-09-04] MEDS: ALBUTEROL SULFATE NEB 2.5 MG/3 ML INH INHALATION ×4 (03:24→21:53)
[2023-09-04 03:55] LABS: Glucose Point of Care 177 mg/dl (65-105)
[2023-09-04 05:05] LABS: Basophils Percent Auto 0.2 % (0.2-1.2); Hematocrit 41.5 % (42.0-52.0); Hemoglobin 13.5 g/dL (14.0-18.0); Immature Granulocyte Absolute 0.04 K/mm3 (0.00-0.031); Immature Granulocyte Percent A 0.4 % (0-0.5); Lymphocytes Absolute Auto 1.25 K/mm3 (0.9-3.2); Mean Corpuscular HGB Conc 32.5 g/dl (32-36); Mean Corpuscular Hemoglobin 27.2 pg (26-34); Mean Corpuscular Volume 83.5 fl (80-100); Mean Platelet Volume 9.4 fl (7.4-10.4); Monocytes Absolute Auto 0.8 K/mm3 (0.1-0.6); Monocytes Percent Auto 7.9 % (2.6-8.5); Neutrophils Absolute Auto 7.5 K/mm3 (1.3-6.7); Neutrophils Percent Auto 78.5 % (45.5-73.1); Platelet Count Result 281 k/mm3 (150-375); Red Blood Count 4.97 M/mm3 (4.6-6.20); Red Cell Distribution Width 13.5 % (11.5-14.5); White Blood Count 9.6 K/mm3 (4.5-10.0)
[2023-09-04 05:15] LABS: Alanine Aminotransferase 19 U/L (6-50); Alkaline Phosphatase 71 U/L (38-126); Anion Gap 7 mmol/L (8-16); Aspartate Amino Transferase 42 U/L (17-59); Bilirubin,Total 0.4 mg/dL (0.2-1.3); Blood Urea Nitrogen 12 mg/dL (9-20); Calcium 8.3 mg/dL (8.4-10.2); Carbon Dioxide 24 mmol/L (22-30); Chloride 106 mmol/L (98-107); Estimated CRCL calculation 84 ml/min; Estimated Glomerular Filt Rate > 60; Glucose 183 mg/dL (65-110); Potassium 3.4 mmol/L (3.4-5.0); Sodium 137 mmol/L (137-145)
[2023-09-04 05:34] LABS: Atypical Lymphocytes Present; Burr Cells 2+ (NORMAL); Platelet Estimate Adequate (Adequate); Schistocytes None Seen (NORMAL)
[2023-09-04] MEDS: guaiFENesin/CODEINE (*CRX) 200/20 MG 10 ML SYRUP PO ×5 (06:12→21:12)
[2023-09-04] MEDS: ACETAMINOPHEN 325 MG TABLET 650 MG PO ×2 (06:13→21:13)
[2023-09-04] MEDS: cefTRIAXone 2 GM/NS 100 ML 2 GM/100 ML BAG IVPB (08:42)
[2023-09-04] MEDS: POTASSIUM CHLORIDE 20 MEQ PACKET (FOR LIQUID) 40 MEQ PO (08:43)
[2023-09-04] MEDS: AZITHROMYCIN 500 MG/NS 250 ML 500 MG/250 ML BAG 250 MG IVPB (08:43)
[2023-09-04] MEDS: PANTOPRAZOLE SODIUM IV 40 MG VIAL IV PUSH (08:43)
[2023-09-04] MEDS: ENOXAPARIN 40 MG/0.4 ML SYRINGE SUB-Q (08:44)
[2023-09-04] MEDS: lisinopriL 2.5 MG TABLET PO (08:44)
[2023-09-04] MEDS: VANCOMYCIN 1,500 MG/NS 500 ML 1,500 MG/500 ML BAG 250 MG IVPB ×2 (10:05→23:27)
[2023-09-04] MEDS: REMDESIVIR 100 MG/NS 250 ML 100 MG/250 ML BAG 250 MG IVPB (10:07)
[2023-09-04] MEDS: BARICITINIB 2 MG TABLET 4 MG PO (11:38)
[2023-09-04 11:46] LABS: Glucose Point of Care 231 mg/dl (65-105)
[2023-09-04 11:46] LABS: Glucose Point of Care 188 mg/dl (65-105)
--- NOTE | 2023-09-04 12:52 | WPDINTPN ---
Progress Note: A&P Assessment and Plan (1) Diabetic ketoacidosis associated with type 2 diabetes mellitus: Qualifiers: Diabetes mellitus complication detail: without coma Qualified Code(s): E11.10 - Type 2 diabetes mellitus with ketoacidosis without coma Code(s): E11.10 - Type 2 diabetes mellitus with ketoacidosis without coma Status: Acute Assessment and Plan: Patient presented with hyperglycemia, elevated anion gap beta hydroxybutyrate. UA did show significant amount of ketones and glucose. -patient received 3 L of IV fluid bolus in the ER, started on insulin drip per DKA protocol -hemoglobin A1c is 10.3 on this admission -patient transition to long-acting insulin and sliding scale insulin and diabetic diet on 09/03 evening -continue Lantus, sliding scale insulin Accu-Cheks -patient does have a history of diabetes type 2, on Trulicity as an outpatient (2) Acute respiratory failure with hypoxia: Code(s): J96.01 - Acute respiratory failure with hypoxia Status: Acute Assessment and Plan: Acute hypoxic respiratory failure likely related to pneumonia which could be secondary to COVID-19 and/or bacteria -09/02/2023 CTA chest: Extensive bilateral upper and particularly lower lobe preferentially peripheral pulmonary groundglass infiltrates; consider Covid pneumonia. No evidence of pulmonary embolism Patient states he has had pneumonia in the past -excess 6 3 AV patient high-flow therapy with Airvo, 55 L and 80 % FiO2, wean FiO2 to maintain maintain O2 sats > a 92% -patient started on ceftriaxone, azithromycin and vancomycin (08/14) -09/02/2023 blood cultures: Preliminary results are negative x2 -09/03/2023 sputum cultures man with moderate Gram-negative coccobacilli and moderate Gram-positive cocci -continue high-flow therapy, Airvo (3) Pneumonia due to COVID-19 virus: Code(s): U07.1 - COVID-19; J12.82 - Pneumonia due to coronavirus disease 2019 Status: Acute Assessment and Plan: Patient was tested positive for SARS-CoV-2 PCR on 09/02/2022 -started on Remdesivir, baricitinib and dexamethasone -D-dimer was elevated to 2.13 -CTA chest as above -continue antibiotics -continue contact and airborne isolation Plan DVT prophylaxis: Enoxaparin Stress ulcer prophylaxis: Protonix Nutrition: Will liquid diabetic diet Code Status: Full code Critical Care Time Spent: 37 minutes Due to a high probability of clinically significant, life threatening deterioration, the patient required my highest level of preparedness to intervene emergently and I personally spent this critical care time directly and personally managing the patient. This critical care time included obtaining a history; examining the patient; pulse oximetry; ordering and review of studies; arranging urgent treatment with development of a management plan; evaluation of patient's response to treatment; frequent reassessment; and discussions with other providers. It was exclusive of separately billable procedures and treating other patients and teaching time. Please see Assessment and Plan section and the rest of the note for further information on patient assessment and treatment This dictation may have been done utilizing a voice recognition system. Attempts have been made to correct errors. However, there may be uncorrected grammatical, spelling, and recognitions errors present. Subjective Date/time seen: 09/04/23 12:52 Interval history: Reason for consult: DKA Acute hypoxic respiratory failure secondary to COVID/bacteria pneumonia, shortness of breath, 09/04/2023: Patient seen and examined in the ICU, remains on high-flow therapy with Airvo 55 L flow rate and 90% FiO2. Overnight patient did drop his O2 sats after a bout of coughing, it took some time for his O2 sats to come back to normal he was placed on non-rebreather along with the Airvo. Patient is hemodynamically stable, good urine output was transition to long-a
[2023-09-04] MEDS: BENZONATATE 100 MG CAPSULE 200 MG PO ×2 (13:05→18:53)
[2023-09-04 16:06] LABS: Glucose Point of Care 290 mg/dl (65-105)
[2023-09-04 20:20] LABS: Glucose Point of Care 331 mg/dl (65-105)
[2023-09-04] MEDS: INSULIN GLARGINE (*BKC) 100 UNITS/ML 40 UNITS SUB-Q (21:12)
[2023-09-04 21:34] LABS: Vancomycin Trough 11.2 ug/mL (10.0-20.0)
[2023-09-04 23:33] LABS: Alveolar/Arterial O2 Gradient 426.3 mmHg; Base Excess ABG -2.2 mEq/l (+/-2.0); Carboxyhemoglobin 0.1 % THb (0-2.0); Fractional Inspired Oxygen 72 %; HCO3 ABG 20.3 mEq/l (22.0-26.0); Methemoglobin ABG 0.1 %THb (0-1.5); Oxygen Content ABG 18.3 %vol (16.0-22.0); Oxygen Saturation ABG 91.1 % (95.0-100.0); Oxyhemoglobin 90.7 % THb (90.0-100.0); PCO2 ABG 29.1 mmHg (35.0-45.0); PO2 ABG 55.9 mmHg (80.0-100.0); PO2 FiO2 Ratio Arterial Blood 0.78 %; Reduced Hemoglobin 9.1 %THb (0-5.0); Total Hemoglobin 14.4 g/dL (12.0-18.0); pH ABG 7.462 (7.350-7.450)
[2023-09-04 23:39] LABS: Device HIGH FLOW THERAPY; Modified Allen's Test Pass; Site Drawn LEFT RADIAL
[2023-09-05] VITALS (32 sets, daily range): BP systolic 79–159; BP diastolic 54–116; PULSE 49–118; RESP 18–30; TEMP 36.4–37.8; O2SAT 91–100; BMI 25.3
[2023-09-05] MEDS: dexmedeTOMIDine 400 MCG/100 ML 400 MCG/100 ML BAG IV CONT ×2 (01:09→08:23)
[2023-09-05] MEDS: IPRATROPIUM BR 0.02% INH SOLN 0.5 MG/2.5 ML VIAL INHALATION ×2 (03:34→10:16)
[2023-09-05] MEDS: ALBUTEROL SULFATE NEB 2.5 MG/3 ML INH INHALATION ×2 (03:35→10:16)
[2023-09-05 04:12] LABS: Estimated CRCL calculation 95 ml/min; Estimated Glomerular Filt Rate > 60
[2023-09-05 04:14] LABS: Legionella pneumophila Ag Ur Not Detected (Not Detected)
[2023-09-05] MEDS: VANCOMYCIN 1,500 MG/NS 500 ML 1,500 MG/500 ML BAG 250 MG IVPB ×2 (07:16→16:03)
[2023-09-05 08:03] LABS: Basophils Percent Auto 0.2 % (0.2-1.2); Hematocrit 41.1 % (42.0-52.0); Hemoglobin 13.5 g/dL (14.0-18.0); Immature Granulocyte Absolute 0.04 K/mm3 (0.00-0.031); Immature Granulocyte Percent A 0.4 % (0-0.5); Lymphocytes Absolute Auto 1.03 K/mm3 (0.9-3.2); Mean Corpuscular HGB Conc 32.8 g/dl (32-36); Mean Corpuscular Hemoglobin 27.2 pg (26-34); Mean Corpuscular Volume 82.9 fl (80-100); Mean Platelet Volume 10.1 fl (7.4-10.4); Monocytes Absolute Auto 0.6 K/mm3 (0.1-0.6); Monocytes Percent Auto 6.2 % (2.6-8.5); Neutrophils Absolute Auto 7.7 K/mm3 (1.3-6.7); Neutrophils Percent Auto 82.2 % (45.5-73.1); Platelet Count Result 228 k/mm3 (150-375); Red Blood Count 4.96 M/mm3 (4.6-6.20); Red Cell Distribution Width 13.7 % (11.5-14.5); White Blood Count 9.4 K/mm3 (4.5-10.0)
[2023-09-05] MEDS: ENOXAPARIN 40 MG/0.4 ML SYRINGE SUB-Q (08:25)
[2023-09-05] MEDS: PANTOPRAZOLE SODIUM IV 40 MG VIAL IV PUSH (08:25)
[2023-09-05] MEDS: cefTRIAXone 2 GM/NS 100 ML 2 GM/100 ML BAG IVPB (08:25)
[2023-09-05 08:33] LABS: Alanine Aminotransferase 25 U/L (6-50); Albumin Level 2.8 g/dL (3.5-5.1); Alkaline Phosphatase 104 U/L (38-126); Anion Gap 8 mmol/L (8-16); Aspartate Amino Transferase 63 U/L (17-59); Bilirubin,Total 0.5 mg/dL (0.2-1.3); Blood Urea Nitrogen 14 mg/dL (9-20); CRP 5.8 mg/dL (<1.0); Calcium 8.2 mg/dL (8.4-10.2); Carbon Dioxide 24 mmol/L (22-30); Chloride 106 mmol/L (98-107); Estimated CRCL calculation 95 ml/min; Estimated Glomerular Filt Rate > 60; Glucose 202 mg/dL (65-110); Magnesium 2.2 mg/dL (1.6-2.3); Phosphorus 3.1 mg/dL (2.5-4.5); Potassium 3.4 mmol/L (3.4-5.0); Sodium 138 mmol/L (137-145)
[2023-09-05] MEDS: ETOMIDATE 20 MG/10 ML AMPUL IV PUSH (08:35)
[2023-09-05] MEDS: ROCURONIUM BROMIDE 50 MG/5 ML VIAL IV PUSH ×2 (08:40→15:40)
[2023-09-05] MEDS: FENTANYL 2,500MCG/NS250ML(*CRX 2,500 MCG/250 ML BAG IV CONT (08:50)
[2023-09-05] MEDS: MIDAZOLAM 100MG/NS 100ML(*CRX) 100 MG/100 ML BAG IV CONT (08:50)
--- NOTE | 2023-09-05 09:11 | WPDPROCEDUR ---
Procedures Intubation Intubation Date: 09/05/23 Intubation Time: 08:59 Consent: I had discussed with the patient regarding intubation on 09/03/2026 if that need arises, he was agreeable to intubation if his condition worsens. This morning patient chest x-ray worsened, he was somnolent and obtunded, in my opinion the best option was to intubate him and place him on mechanical ventilation to secure and protect his airway. Patient was also hypoxic on his ABGs and was on high-flow therapy with 90% FiO2 and 55 L flow rate A pre-procedural Time-Out was completed immediately before starting the procedure and confirmed: Patient Identification, Site, Procedure, Patient Position and the Availability of Requisite Equipment: Yes Sedative: etomidate Paralytic: rocuronium Laryngoscope: fiber optic video scope Assist device used: fiber optic device ET tube size: 8 Tube secured depth (cm): 24 Tube secured location: lips Tube placement confirmation: visualized tube passing through cords, equal breath sounds bilaterally, no breath sounds over epigastrium and confirmation by capnometry Patient tolerated procedure: well Intubation complications: none
[2023-09-05] MEDS: AZITHROMYCIN 500 MG/NS 250 ML 500 MG/250 ML BAG 250 MG IVPB (10:09)
[2023-09-05 11:01] LABS: Alveolar/Arterial O2 Gradient 446.4 mmHg; Base Excess ABG -3.6 mEq/l (+/-2.0); Fractional Inspired Oxygen 100 %; HCO3 ABG 20.7 mEq/l (22.0-26.0); Oxygen Content ABG 21.4 %vol (16.0-22.0); Oxygen Saturation ABG 99.5 % (95.0-100.0); PCO2 ABG 35.7 mmHg (35.0-45.0); PO2 ABG 230.9 mmHg (80.0-100.0); PO2 FiO2 Ratio Arterial Blood 2.31 %; Total Hemoglobin 15.2 g/dL (12.0-18.0); pH ABG 7.382 (7.350-7.450)
[2023-09-05 11:04] LABS: Device VENTILATOR; Modified Allen's Test Pass; Site Drawn LEFT RADIAL
[2023-09-05 11:05] LABS: Arterial Blood Gas PEEP 12 cmH2O; Arterial Blood Gas Vent Mode CMV; Arterial Blood Gas Ventilator rate 24 /MIN
[2023-09-05 11:07] LABS: Arterial Blood Gas Tidal Volume 450 ml
--- NOTE | 2023-09-05 11:15 | PCFNICU ---
ICU Rounding Note: Pt current nutrition is NPO. Sedated on vent. Nutrition recommendation: Tube feeding recommendations if needed: Vital AF 1.2 @ 60 ml/h goal rate: 1584 kcal, 99 g protein, 1070 ml free water. Flush 30 ml q 4 hours. Last recorded weight is 82.4 kg. Bowel Motility: Last BM recorded 08/31/23 Labs Reviewed: Hgb 13.5, Hct 41.1, Alb 2.8, Glu 202 Meds Noted: Precedex, fentanyl, versed, protonix Skin: WNL Additional Notes: Pt was intubated and placed on mechanical vent overnight. Pt to be transferred to [facility], awaiting bed. Following daily in ICU rounds. Monitoring diet orders, labs, weights, plan of care Follow daily in ICU rounds, follow up every 3 days.
--- NOTE | 2023-09-05 11:38 | WPDINTPN ---
Progress Note: A&P Assessment and Plan (1) STEMI (ST elevation myocardial infarction): Code(s): I21.3 - ST elevation (STEMI) myocardial infarction of unspecified site Status: Acute Assessment and Plan: Post intubation patient show ST changes on the monitor, a [address] elevation in inferior and anterolateral leads -discussed with cardiology agree with STEMI -aspirin was already ordered for stroke, will give Brilinta 180 mg per Cardiology -discussed with Dr. Bush, updated him that patient is having a STEMI, he was agreeable for cardiac catheterization to be done here at [facility] and that patient receive anticoagulation, knowing that there would be a risk for hemorrhagic conversion of the acute strokes that he has. Discussed with Cardiology, patient be taken to the quality lab technician and then be transferred to [facility] (2) Acute respiratory failure with hypoxia: Code(s): J96.01 - Acute respiratory failure with hypoxia Status: Acute Assessment and Plan: Acute hypoxic respiratory failure likely related to pneumonia which could be secondary to COVID-19 and/or bacteria -09/02/2023 CTA chest: Extensive bilateral upper and particularly lower lobe preferentially peripheral pulmonary groundglass infiltrates; consider Covid pneumonia. No evidence of pulmonary embolism -patient started on ceftriaxone, azithromycin and vancomycin (08/14) -09/02/2023 blood cultures: Preliminary results are negative x2 -09/03/2023 sputum cultures man with moderate Gram-negative coccobacilli and moderate Gram-positive cocci -continue high-flow therapy, Airvo 09/04: Patient was obtunded this morning, was intubated for airway protection and worsening chest x-ray -patient was placed on CMV mode of ventilation, peep of 12 and 100 % FiO2 -chest x-ray this morning: Significant interval progression of diffuse bilateral airspace disease which may represent edema and/or pneumonia. -ABGs post intubation, 7.38/35/230/20/98% on 100% FiO2 and peep of 12. Will wean FiO2 to maintain O2 sats greater than 92% (3) Stroke: Code(s): I63.9 - Cerebral infarction, unspecified Status: Acute Assessment and Plan: Patient was obtunded this morning not open his eyes or following commands. -09/05 CT scan of the brain: Significant progression of diffuse bilateral airspace consolidation, consistent with pneumonia.2:? Small pleural effusions. 3: Mediastinal lymphadenopathy, likely reactive. 12/27 CTA head and neck:1. Infarcts involving the left frontal lobe, left parietal lobe, left occipital lobe, right frontoparietal region, and left caudate nucleus, likely acute. 2. Age-indeterminate infarct in the right thalamus.3. No aneurysm or significant intracranial arterial stenosis.4. 0% stenosis of the proximal internal carotid arteries relative to normal distal artery lumen diameters (NASCET criteria).5. Small pleural effusions.6. Diffuse lung disease, consistent with pneumonia. There is no neurologist at [facility] this week, so the called [facility] for transfer the was accepted by Dr. Bush (ICU attending). Patient will be transferred to [facility] once bed is available (4) Diabetic ketoacidosis associated with type 2 diabetes mellitus: Qualifiers: Diabetes mellitus complication detail: without coma Qualified Code(s): E11.10 - Type 2 diabetes mellitus with ketoacidosis without coma Code(s): E11.10 - Type 2 diabetes mellitus with ketoacidosis without coma Status: Acute Assessment and Plan: Patient presented with hyperglycemia, elevated anion gap beta hydroxybutyrate. UA did show significant amount of ketones and glucose. -status post IV fluids and insulin infusion for DKA -hemoglobin A1c is 10.3 on this admission -continue Lantus, sliding scale insulin Accu-Cheks -patient does have a history of diabetes type 2, on Trulicity as an outpatient (5) Pneumonia due to COVID-19 virus:
--- NOTE | 2023-09-05 11:52 | ECG_ITS ---
Measurements Intervals [place] Rate: 80 P: [place]: 0 QRS: -53 QRSD: 92 T: 33 QT: 384 QTc: 444 Interpretive Statements LIKELY SINUS RHYTHM WITH ABERRANT CONDUCTION OR VENTRICULAR PREMATURE COMPLEXES INFERIOR MYOCARDIAL INFARCTION [40+ ms Q WAVE AND/OR ST/T ABNORMALITY IN II/aVF], POSSIBLY ACUTE ANTEROLATERAL MYOCARDIAL INFARCTION [40+ ms Q WAVE IN I/aVL/V3-V6], POSSIBLY ACUTE ACUTE AL COMPARED TO ECG 09/02/2023 13:49:42 ACUTE AL NOW PRESENT Electronically Signed On 09-05-2023 21:01:22 DOCTOR [employer]IC[employer] by Purvi Herrera M.D.
--- NOTE | 2023-09-05 11:57 | PM.TDS ---
Transfer Discharge Sum: Prov Provider Date of admission: 09/02/23 16:06 Primary care physician: UNKNOWN,DOCTOR Admitting clinician: Les Salvador MD Attending physician on admission: Les Salvador Consults: 09/02/23 Consult to Physician Routine Comment: Consulting Provider: Abdulkadir Gomez Reason for consultation: DKA Has provider been notified: Yes 09/02/23 15:40 Consult to Dietitian Routine Reason for Consult:: DKA admission 09/02/23 18:13 Consult to Dietitian Routine Reason for Consult:: DKA admission Attending physician on discharge: Les Salvador Discharging clinician: Les Salvador Anticipated date of transfer: 09/05/23 Receiving physician/facility: Dr. Bush, Safety Clothing And Equipment Developer, Medical ICU, [facility]. DS: Admitting Diagnosis Discharge Date 09/05/2023: Admitting Diagnosis Diabetic ketoacidosis associated with type 2 diabetes mellitus Pneumonia due to COVID-19 virus Acute respiratory failure with hypoxia DS: Discharge Diagnosis Discharge Diagnosis (1) Stroke: Code(s): I63.9 - Cerebral infarction, unspecified Status: Acute (2) Acute hypoxemic respiratory failure: Code(s): J96.01 - Acute respiratory failure with hypoxia Status: Acute (3) Pneumonia due to COVID-19 virus: Code(s): U07.1 - COVID-19; J12.82 - Pneumonia due to coronavirus disease 2019 Status: Acute (4) Acute respiratory failure with hypoxia: Code(s): J96.01 - Acute respiratory failure with hypoxia Status: Acute (5) Diabetic ketoacidosis associated with type 2 diabetes mellitus: Qualifiers: Diabetes mellitus complication detail: without coma Qualified Code(s): E11.10 - Type 2 diabetes mellitus with ketoacidosis without coma Code(s): E11.10 - Type 2 diabetes mellitus with ketoacidosis without coma Status: Acute (6) STEMI (ST elevation myocardial infarction): Code(s): I21.3 - ST elevation (STEMI) myocardial infarction of unspecified site Status: Acute Transfer Discharge Sum: Med Medications Active and Home Medications: Home Medications dulaglutide 1.5 mg/0.5 mL subcutaneous pen injector (Trulicity) 1.5 mg subcut WEEKLY 09/02/23 [History Confirmed 09/02/23] lisinopril 2.5 mg tablet 2.5 mg PO DAILY 09/02/23 [History Confirmed 09/02/23] pantoprazole 40 mg tablet,delayed release 40 mg PO HS PRN Heartburn 09/02/23 [History Confirmed 09/02/23] buspirone 7.5 mg tablet 7.5 mg PO BID 09/05/23 [History Confirmed 09/05/23] metformin 1,000 mg tablet 1,000 mg PO BID 09/05/23 [History Confirmed 09/05/23] sildenafil 100 mg tablet 100 mg PO BID 09/05/23 [History Confirmed 09/05/23] Active Medications Acetaminophen (Acetaminophen 325 Mg Tablet) 650 mg PO Q6H PRN PRN Reason: Mild Pain (1-3) or Fever Last Admin: 09/04/23 21:13 Dose: 650 mg Albuterol (Albuterol Sulfate Neb 2.5 Mg/3 Ml Inh) 2.5 mg INHALATION Q6HRT [facility] Last Admin: 09/05/23 10:16 Dose: 2.5 mg Aspirin (Aspirin 325 Mg Tablet) 325 mg PO DAILY@0800 [facility] Atorvastatin Calcium (Atorvastatin 40 Mg Tablet) 40 mg PO DAILY [facility] Baricitinib (Baricitinib 2 Mg Tablet) 4 mg PO DAILY@1100 [facility] Stop: 09/15/23 11:01 Last Admin: 09/04/23 11:38 Dose: 4 mg Benzonatate (Benzonatate 100 Mg Capsule) 200 mg PO TID [facility] Last Admin: 09/05/23 09:52 Dose: Not Given Dexamethasone Sodium Phosphate (Dexamethasone Sod Phos Inj 10 Mg/Ml 1 Ml Vial) 6 mg IV PUSH DAILY [facility] Stop: 09/12/23 09:01 Last Admin: 09/05/23 08:25 Dose: 6 mg Dextrose (Dextrose 50% 25 Gm/50 Ml Syringe) 12.5 gm IV PUSH PRN PRN; Protocol PRN Reason: Hypoglycemia Enoxaparin Sodium (Enoxaparin 40 Mg/0.4 Ml Syringe) 40 mg SUB-Q DAILY [facility] Last Admin: 09/05/23 08:25 Dose: 40 mg Glucagon (Glucagon For Inj 1 Mg Vial) 1 mg IM PRN PRN; Protocol PRN Reason: Hypoglycemia Glucose (Glucose Oral Gel 15 Gm Of Glucse In 37.5 Gm Tube) 15 gm PO PRN PRN; Protocol PRN Reason: Hypoglycemia Guaifenesin
[2023-09-05] MEDS: SODIUM CHLORIDE 0.9% IV 1,000 ML 999 ML IV CONT (12:08)
[2023-09-05] MEDS: TICAGRELOR 90 MG TABLET 180 MG PO (12:25)
[2023-09-05] MEDS: ASPIRIN 325 MG TABLET PO (12:25)
[2023-09-05] MEDS: LIDOCAINE HCL 1% PF INJ 5 ML VIAL INFILTRATE (12:40)
[2023-09-05] MEDS: NOREPINEPHRINE 8 MG/D5W 250 ML 8 MG/250 ML BAG 9.38 MG IV CONT (12:55)
--- NOTE | 2023-09-05 13:00 | PM.CNCAR ---
Assessment and Plan Assessment and plan (1) STEMI (ST elevation myocardial infarction): Code(s): I21.3 - ST elevation (STEMI) myocardial infarction of unspecified site Status: Acute (2) Stroke: Code(s): I63.9 - Cerebral infarction, unspecified Status: Acute (3) Acute hypoxemic respiratory failure: Code(s): J96.01 - Acute respiratory failure with hypoxia Status: Acute (4) Pneumonia due to COVID-19 virus: Code(s): U07.1 - COVID-19; J12.82 - Pneumonia due to coronavirus disease 2019 Status: Acute (5) Acute respiratory failure with hypoxia: Code(s): J96.01 - Acute respiratory failure with hypoxia Status: Acute (6) Diabetic ketoacidosis associated with type 2 diabetes mellitus: Qualifiers: Diabetes mellitus complication detail: without coma Qualified Code(s): E11.10 - Type 2 diabetes mellitus with ketoacidosis without coma Code(s): E11.10 - Type 2 diabetes mellitus with ketoacidosis without coma Status: Acute Plan Patient is critically ill with acute hypoxemic respiratory failure, on mechanical ventilation, DKA, COVID pneumonia, acute stroke and now a STEMI. Patient does have risk of hemorrhagic conversion, however, will proceed with emergent cardiac catheterization after discussion with patient's medical team (Patient is unable to give consent as he is intubated and sedated). Loaded with ASA and Brilinta in the ICU. Further recommendations and plan pending results of cardiac catheterization. Prognosis is very guarded. History of Present Illness History of Present Illness Consult date/time: 09/05/23 13:00 Requesting physician: Abdulkadir Gomez MD Consult reason: Other (STEMI) Reason For Visit: Acute Respiratory Failure w Hypoxia/COVID/DKA Narrative: We are consulted for STEMI. This is a 67 year old male with type 2 diabetes mellitus who initially presented for evaluation of shortness of breath. Found to have COVID and noted to be in DKA as well. Had acute hypoxic respiratory failure as well. This morning, patient noted to be somnolent and obtunded, with worsening of CXR. He was intubated. CT scan shows acute stroke this morning with multiple areas of infarct. As no Neurology available at [facility], transfer had been arranged to [facility]. Afterwards, ST changes were noted on tele. STAT EKG was obtained which showed significant ST elevations in the anterolateral leads and inferior leads, consistent with a STEMI. Case discussed with Edge Trimmer Dr. Gomez, who had also updated [facility] regarding findings of STEMI. Although risk for hemorrhagic conversion given acute stroke, plan to proceed with cardiac catheterization given acute STEMI. Patient loaded with ASA and Brilinta in the ICU. As patient is intubated, unable obtain any history from the patient. History obtained from the medical team and the patient's chart. Review of Systems Review of Systems: ROS unobtainable: Yes unobtainable due to endotracheal tube and unobtainable due to medical condition PMFSH Past Medical History Medical History Type 2 diabetes mellitus Surgical History Surgical History History of appendectomy Family History Family History Mother Cancer Father Dementia Other Family history non-contributory Social History Social History Social History: Surrogate medical decision maker: Danny Mendez, son. Code status: Full code. Smoking packs per day: 1 Smoking cigarettes per day: 20.0 Years smoked: 26 Smoking pack-years: 26.00 Smoking status: Former smoker Tobacco type: cigarettes Smoking end date: 08/10/03 Additional smoking assessment comments: Former smoker, quit greater than 25 years ago. Alcohol intake: never Substanc
--- NOTE | 2023-09-05 13:48 | PCCDE ---
09/05/23 Pt intubated. DM Teaching inappropriate. Re-refer prn.
--- NOTE | 2023-09-05 15:29 | WPDCARDPROC ---
Cardiac Cath Procedure Note Date of procedure:: 09/05/23 Performing physician:: CATHETERIZATION LABORATORY REPORT Procedure Date: 09/05/2023 Rn Clinical Research: Purvi Herrera M.D., [facility]? Referring Physician: Dr. Gomez Anesthesia: Patient already on Versed and Fentanyl drips prior to arrival to laborer aquatic life. Additional Versed and Fentanyl was administered during the procedure. Versed and Fentanyl were ordered and given in my presence at 13:31, procedure ended at 14:48. Supervision of nurse monitored moderate sedation with Versed and Fentanyl was provided for 77 minutes. Total of Versed 2mg and Fentanyl 50mcg were administered by the Operations Research Engineer RN Anisha Ramos. Pre-op Diagnosis: STEMI Post-op Diagnosis: The LAD found to be completely occluded in the mid portion just distal to the first septal branch and first diagonal branch. The RCA (small caliber vessel that is either co-dominant or non-dominant; very difficult to engage without pressure dampening) found to also be completely occluded in the proximal portion. There are [id number] collaterals seen filling the RCA territory. Attempted intervention on the LAD, but unsuccessful. Had initial improvement in flow to the LAD with balloon angioplasty and aspiration thrombectomy, and angiogram after this showed a severely stenotic calcific lesion in the mid LAD. Despite several attempts with small balloons, even a 1.2mm veterinary toxicologist balloon, unable to cross this LAD lesion. The angiogram showed haziness in the vessel just proximal to the severe stenosis, suspect dissection. Given this, and the fact that we were not able to cross the lesion, and ST elevations had already resolved, we stopped further attempts at intervention at this point to avoid further complications. Procedure(s): 1. Ultrasound-guided access of the right common femoral artery 2. Coronary angiography 3. Attempted coronary intervention of the LAD Access Site: Right common femoral artery Brief History and Clinical Indications: Patient is a 67 year old male with type 2 diabetes mellitus who initially presented for evaluation of shortness of breath. Found to have COVID and noted to be in DKA as well. Had acute hypoxic respiratory failure as well. This morning, patient noted to be somnolent and obtunded, with worsening findings on CXR. He was intubated. CT scan shows acute stroke this morning with multiple areas of infarct. As no Neurology available at [facility], transfer had been arranged to [facility]. Afterwards, ST changes were noted on tele. STAT EKG was obtained which showed significant ST elevations in the anterolateral leads and inferior leads, consistent with a STEMI; Q waves already noted in the anterolateral and inferior leads. Case discussed with Beverage Sales Consultant Dr. Gomez, who had also updated [facility] regarding findings of STEMI. Although there is risk for hemorrhagic conversion given acute stroke, plan to proceed with cardiac catheterization given acute STEMI. Patient loaded with ASA and Brilinta in the ICU. Time out called, patient name, date of , medical record number, allergies, procedure performed, identify Rn Clinical Research, patient and staff member concurred with accurate data, procedure carried on. Findings: LEFT HEART CATHETERIZATION FINDINGS: 1. Left main: The left main coronary artery is widely patent without any significant obstructive disease. The left main is a short vessel. Bifurcates into the LAD and LCX. 2. Left anterior descending: The LAD is completely occluded in the mid portion just distal to the first septal branch and first diagonal branch. 3. Left circumflex: The left circumflex is at least a co-dominant vessel, if not dominant. There is a small caliber obtuse marginal branch that has significant ostial disease. The left posterolateral and LPDA branches appear to have significant disease in the mid portion 4. Right coronary artery: The RCA is a small caliber artery that is completel
[2023-09-05] MEDS: MIDAZOLAM HCL (*CRX) 2 MG/2 ML VIAL IV PUSH (15:40)
[2023-09-05] MEDS: REMDESIVIR 100 MG/NS 250 ML 100 MG/250 ML BAG 250 MG IVPB (15:49)
[2023-09-05] MEDS: MINERAL OIL/WHITE PETROLATUM OINTMENT 1 APPLIC EACH EYE (15:50)
[2023-09-05] MEDS: CENTRAL LINE FLUSH 10 ML IV PUSH (15:50)
--- NOTE | 2023-09-05 16:05 | PCRCNOTE ---
Window of time for administration has passed. See next scheduled administration.
--- NOTE | 2023-09-05 17:38 | PC.NURSE ---
1735-[facility] here to transport patient to [facility]. Report called to celeste bland. All documentation sent with ems. Pt.'s vital signs stable upon discharge (see vitals documentation).
[2023-09-05 20:17] LABS: Pneumococcal Antigen Urine Not Detected (Not Detected)
== END 2023-09-05 17:35 | disposition short-term general hospital (02) | DRG 981 ==
LOC: ANHED 11:47 → ANHICU 16:52
PROVIDERS: Internal Medicine; Physician Assistant; Admitting Provider Family Medicine; Emergency Provider General Practice; Visit Provider Internal Medicine
PROC: 02703ZZ Dilation of Coronary Artery, One Artery, Percutaneous Approach (ICD-10-PCS; CPT 93454; principal; 2023-09-05 12:30)
PROC: 02703ZZ Dilation of Coronary Artery, One Artery, Percutaneous Approach (ICD-10-PCS; CPT 92920; 2023-09-05 12:30)
PROC: 02703ZZ Dilation of Coronary Artery, One Artery, Percutaneous Approach (ICD-10-PCS; CPT 92973; 2023-09-05 12:30)
DX: U07.1 COVID-19 (principal); E11.10 Type 2 diabetes mellitus with ketoacidosis without coma; J12.82 Pneumonia due to coronavirus disease 2019; J96.01 Acute respiratory failure with hypoxia; I63.9 Cerebral infarction, unspecified; I21.09 ST elevation (STEMI) myocardial infarction involving other coronary artery of anterior wall; I25.10 Atherosclerotic heart disease of native coronary artery without angina pectoris; I25.84 Coronary atherosclerosis due to calcified coronary lesion; Z87.891 Personal history of nicotine dependence; Z79.85 Long-term (current) use of injectable non-insulin antidiabetic drugs
CPT/HCPCS: 31500; 36415; 36569; 36600; 70450; 70496; 70498; 71045; 71250; 71275; 80048; 80053; 80202; 81001; 82010; 82375; 82565; 82728; 82805; 82948; 83036; 83050; 83605; 83615; 83735; 83880; 84100; 84145; 84484; 85025; 85055; 85380; 85610; 85730; 86140; 87040; 87070; 87205; 87449; 87637; 87641; 87899; 92920; 92973; 93005; 93306; 93454; 94002; 94003; 94640; 96361; 96365; 96366; 96375; 99285; A9270; C1725; C1757; C1769; C1887; C1894; C9113; J0248; J0456; J0583; J0696; J1100; J1327; J1644; J1650; J1815; J1940; J2250; J2305; J3010; J3370; J3480; J7030; J7040; J7120; Q9967